=== PATIENT | female | born 1945 | race Caucasian/White ===

== ENCOUNTER 2016-07-28 12:36 | Emergency (ER) | payer OTHER ==
[~2016-07-28] VITALS: Ht 160 cm; Wt 61.0 kg
[2016-07-28 12:39] VITALS: BP 164/101; PULSE 97; RESP 18; TEMP 98.3; O2SAT 97
[2016-07-28] MEDS ORDERED: ATOR20TA15 PO (12:51)
[2016-07-28] MEDS ORDERED: ASPI81CH37 CHEW (12:51)
[2016-07-28] MEDS ORDERED: CLINDAMYCIN INJ 600 MG in SODIUM CHLORIDE 0.9% INJ 100 ML IV ONE (13:15)
[2016-07-28] MEDS ORDERED: TETANUS/DIPHTHERIA TOXOID ADULT 0.5 ML VIAL IM ONE (13:15)
[2016-07-28] MEDS ORDERED: KETOROLAC TROMETHAMINE 30 MG/ML (IVP) VIAL IV PUSH ONE (13:15)
[2016-07-28 13:49] LABS: AUTOMATED NEUTROPHIL # 8.6 TH/MM3 (1.8-7.7); BASOPHIL # 0.1 TH/MM3 (0-0.2); BASOPHIL % 0.6 % (0.0-2.0); EOSINOPHIL # 0.1 TH/MM3 (0-0.4); EOSINOPHIL % 0.6 % (0.0-4.0); HEMATOCRIT 36.2 % (35.0-46.0); HEMO FLAGS DIFF FINAL; LYMPH % 9.4 % (9.0-44.0); MEAN CELL VOLUME 93.4 FL (80.0-100.0); MEAN CORPUSCULAR HEMOGLOBIN 31.8 PG (27.0-34.0); MONO % 6.4 % (0.0-8.0); PLATELET COUNT 252 TH/MM3 (150-450); RED BLOOD COUNT 3.88 MIL/MM3 (4.00-5.30); RED CELL DISTRIBUTION WIDTH 12.5 % (11.6-17.2); WHITE BLOOD COUNT 10.5 TH/MM3 (4.0-11.0)
[2016-07-28 13:51] LABS: POTASSIUM 3.7 MEQ/L (3.5-5.1)
[2016-07-28 13:54] LABS: BICARBONATE 28.2 MEQ/L (21.0-32.0)
[2016-07-28] MEDS ORDERED: TYLE325T PO (15:52)
[2016-07-28] MEDS ORDERED: BACT800T5 PO (15:52)
--- NOTE | 2016-07-28 15:53 | PD ---
HPI Chief Complaint: Skin Problem Time Seen by Provider: 12:59 Travel History International Travel<30 days: No Contact w/Intl Traveler<30days: No Traveled to known affect area: No History of Present Illness HPI 70yo F with no PMH presents to the ED with c/o left hand pain and swelling for 2 days. Pt thinks it started as a pimple on dorsum of left second MCP and then the redness spread to the dorsum of left hand to distal radius. States that was a small amount of pus that came out that was localized where the pimple was and now that area is flat. Denies any fever, n/v, chest pain, sob, abdominal pain, focal weakness or numbness. PFSH Past Medical History High Cholesterol: Yes Tetanus Vaccination: > 5 Years Influenza Vaccination: Yes ?: Not Menopausal: Yes Past Surgical History Hysterectomy: Yes Other Surgery: Yes (Lipoma removed Lt. elbow ) Social History Alcohol Use: No Tobacco Use: No Substance Use: No Allergies-Medications (Allergen,Severity, Reaction): Coded Allergies: No Known Allergies (Unverified , 07/28/16) Reported Meds & Prescriptions Reported Meds & Active Scripts Active Tylenol (Acetaminophen) 325 Mg Tab 325 Mg PO Q4H PRN Bactrim DS (Sulfamethoxazole-Trimethoprim) 800-160 Mg Tab 1 Tab PO BID Reported Aspirin Low Dose (Aspirin) 81 Mg Chew 81 Mg CHEW DAILY Atorvastatin (Atorvastatin Calcium) 20 Mg Tab 20 Mg PO HS Review of Systems Except as stated in HPI: all other systems reviewed are Neg Physical Exam Narrative GENERAL: 70yo F not in distress. SKIN: Focused skin assessment warm/dry. HEAD: Atraumatic. Normocephalic. CARDIOVASCULAR: Regular rate and rhythm. No murmur appreciated. RESPIRATORY: No accessory muscle use. Clear to auscultation. Breath sounds equal bilaterally. GASTROINTESTINAL: Abdomen soft, non-tender, nondistended. MUSCULOSKELETAL: Left hand: +Erythema and mild edema on dorsum of left hand that do not extend to the digits. +scab proximal left 2nd MCP. No fluctuance. Mild streaking to proximal radius. Sensation intact. FROM in all digits. Muscle strength intact. Radial pulse 2+. No crepitus. Left elbow: +Bandage from removal of lipoma by transitional living specialist. FROM left elbow, not tender to palpation. No edema. NEUROLOGICAL: Awake and alert. No obvious cranial nerve deficits. Motor grossly within normal limits. Normal speech. PSYCHIATRIC: Appropriate mood and affect; insight and judgment normal. Data Data Last Documented VS Vital Signs Date Time Temp Pulse Resp B/P Pulse Ox O2 Delivery O2 Flow Rate FiO2 07/28/16 16:02 82 18 134/78 98 07/28/16 12:39 98.3 Orders Basic Metabolic Panel (Bmp) (07/28/16 13:10) Complete Blood Count With Diff (07/28/16 13:10) Clindamycin Inj (Cleocin Inj) (07/28/16 13:15) Tetanus/Diphtheria Tox Adult (Tetanus/Di (07/28/16 13:15) Ketorolac Inj (Toradol Inj) (07/28/16 13:15) Hand, Limited (2vws) (07/28/16 ) Labs Laboratory Tests Test 07/28/16 13:32 White Blood Count 10.5 TH/MM3 Red Blood Count 3.88 MIL/MM3 Hemoglobin 12.3 GM/DL Hematocrit 36.2 % Mean Corpuscular Volume 93.4 FL Mean Corpuscular Hemoglobin 31.8 PG Mean Corpuscular Hemoglobin 34.0 % Concent Red Cell Distribution Width 12.5 % Platelet Count 252 TH/MM3 Mean Platelet Volume 7.7 FL Neutrophils (%) (Auto) 83.0 % Lymphocytes (%) (Auto) 9.4 % Monocytes (%) (Auto) 6.4 % Eosinophils (%) (Auto) 0.6 % Basophils (%) (Auto) 0.6 % Neutrophils # (Auto) 8.6 TH/MM3 Lymphocytes # (Auto) 1.0 TH/MM3 Monocytes # (Auto) 0.7 TH/MM3 Eosinophils # (Auto) 0.1 TH/MM3 Basophils # (Auto) 0.1 TH/MM3 CBC Comment DIFF FINAL Differential Comment Sodium Level 139 MEQ/L Potassium Level 3.7 MEQ/L Chloride Level 103 MEQ/L Carbon Dioxide Level 28.2 MEQ/L Anion Gap 8 MEQ/L Blood Urea Nitrogen 16 MG/DL Creatinine 0.80 MG/DL Estimat Glomerular Filtration 71 ML/MIN Rate Random Glucose 115 MG/DL Calcium Level 9.2 MG/DL MDM Medical Decision Making Medical Screen Exam Complete: Yes Emergency Medical Condition: Yes Interpretation(s) Laboratory Tests Test 07/28/16 13:32 White Blood Count 10.5 TH/MM3 (4.0-11.0) Red Blood Count 3.88 MIL/MM3 (4.00-5.30) Hemoglobin 12.3 GM/DL (11.6-15.3) Hematocrit 36.2 % (35.0-46.0) Mean Corpuscular Volume 93.4 FL (80.0-100.0) Mean Corpuscular Hemoglobin 31.8 PG (27.0-34.0) Mean Corpuscular Hemoglobin 34.0 % Concent (32.0-36.0) Red Cell Distribution Width 12.5 % (11.6-17.2) Platelet Count 252 TH/MM3 (150-450) Mean Platelet Volume 7.7 FL (7.0-11.0) Neutrophils (%) (Auto) 83.0 % (16.0-70.0) Lymphocytes (%) (Auto) 9.4 % (9.0-44.0) Monocytes (%) (Auto) 6.4 % (0.0-8.0) Eosinophils (%) (Auto) 0.6 % (0.0-4.0) Basophils (%) (Auto) 0.6 % (0.0-2.0) Neutrophils # (Auto) 8.6 TH/MM3 (1.8-7.7) Lymphocytes # (Auto) 1.0 TH/MM3 (1.0-4.8) Monocytes # (Auto) 0.7 TH/MM3 (0-0.9) Eosinophils # (Auto) 0.1 TH/MM3 (0-0.4) Basophils # (Auto) 0.1 TH/MM3 (0-0.2) CBC Comment DIFF FINAL Differential Comment Sodium Level 139 MEQ/L (136-145) Potassium Level 3.7 MEQ/L (3.5-5.1) Chloride Level 103 MEQ/L (98-107) Carbon Dioxide Level 28.2 MEQ/L (21.0-32.0) Anion Gap 8 MEQ/L (5-15) Blood Urea Nitrogen 16 MG/DL (7-18) Creatinine 0.80 MG/DL (0.50-1.00) Estimat Glomerular Filtration 71 ML/MIN (>89) Rate Random Glucose 115 MG/DL (74-106) Calcium Level 9.2 MG/DL (8.5-10.1) Differential Diagnosis Cellulitis of left hand Narrative Course 70yo F with left hand cellulitis. Pt has not tried outpatient treatment and is nontoxic appearing. She is not immunocompromised. Labs reviewed, no leukocytosis. BMP unremarkable. Xray left hand reviewed by me, unremarkable. Pt given clindamycin, tetanus, and toradol. Pt reevaluated at bedside and states pain is better as well as swelling. Pt has no fever or vomiting. Pt is tolerating PO, will try outpatient antibiotics first. Strict return precautions given if pain, redness, swelling worsens or pt unable to take pills. Diagnosis Primary Impression: Cellulitis of left hand Patient Instructions: General Instructions Departure Forms: Tests/Procedures Additional Instructions: Please follow up with your PMD in 3-7 days. Return to the ED if symptoms worsen. Med/Other Pt SpecificInfo: Prescription(s) given Scripts Acetaminophen (Tylenol)325 Mg Xbr389 Mg PO Q4H PRN (PAIN SCALE 1 TO 4) #20 TAB Ref 0 Prov:Halie Gonzalez DO 07/28/16 Sulfamethoxazole-Trimethoprim (Bactrim DS)800-160 Mg Tab1 Tab PO BID #14 TAB Ref 0 Prov:Halie Gonzalez DO 07/28/16 Disposition: 01 DISCHARGE HOME Condition: Stable Halie Gonzalez DO Jul 28, 2016 15:53
[2016-07-28 16:02] VITALS: BP 134/78
--- NOTE | 2016-07-28 16:23 | RADHPO ---
EXAM DATE/TIME: 07/28/2016 15:04 [facility] COMPARISON: No previous studies available for comparison. INDICATIONS : Patient complains of pain and red swollen left hand at the 2nd MCPJ area. MEDICAL HISTORY : None. SURGICAL HISTORY : None. ENCOUNTER: Initial ACUITY: 3 days PAIN SCORE: 8/10 LOCATION: Left Hand, 2nd MCPJ FINDINGS: There degenerative changes in carpal/metacarpal joint of the left thumb. The remainder of the osseous structures appear intact. No acute fracture is seen. No retained foreign body is seen. CONCLUSION: 1. Degenerative changes at the base of the thumb. No acute abnormality. Osvaldo Jimenez MD on July 28, 2016 at 16:20 Board Certified Radiologist. This report was verified electronically.
== END 2016-07-28 16:03 | disposition home or self-care (01) ==
LOC: PHED 12:36
DX: L03.114 Cellulitis of left upper limb (principal); E78.00 Pure hypercholesterolemia, unspecified; Z23 Encounter for immunization
CPT/HCPCS: 73120; 80048; 85025; 90471; 90714; 96365; 96375; 99284; J1885